=== PATIENT | male | born 2005 | race Caucasian/White ===

== ENCOUNTER 2025-03-30 11:56 | Emergency (ER) | payer SELFPAY ==
[2025-03-30 12:06] VITALS: PULSE 86; O2SAT 99
[2025-03-30 12:07] VITALS: BP 127/80; PULSE 110; RESP 16; TEMP 36.5; O2SAT 98; BMI 17.1
--- NOTE | 2025-03-30 12:07 | ECG_ITS ---
APPROVED REPORT Exam: Resting ECG HR:89 bpm ECG Measurements Heart Rate 89 AXES QRSd 81 QRS 95 QT 338 T 78 QTc 384 Conclusion ATRIAL FLUTTER/TACHYCARDIA BORDERLINE RIGHT AXIS DEVIATION [QRS AXIS > 90] POSSIBLE RIGHT VENTRICULAR CONDUCTION DELAY [RSR (QR) IN V1/V2] MODERATE ST DEPRESSION [0.05+ mV ST DEPRESSION] ABNORMAL ECG UNCONFIRMED REPORT Normal sinus rhythm. No ST elevation or depression. Electronically signed by : RAHUL FITZGERALD, 03/31/2025 07:08:59
[2025-03-30 12:15] VITALS: PULSE 78; RESP 17; O2SAT 99
--- NOTE | 2025-03-30 12:18 | XR_ITS ---
FINAL REPORT CLINICAL HISTORY: Shortness of breath COMPARISON: None FINDINGS: CHEST 1 VIEW No acute pulmonary opacity is present. There is no evidence of effusion or pneumothorax. Mediastinum is unremarkable. Heart size is normal. IMPRESSION: No acute abnormality. Reviewed, Interpreted and Dictated by Galindo Medina MD Transcribed by Kerry Harris Authenticated and [facility]
--- NOTE | 2025-03-30 12:23 | ED_ITS ---
Discharge Plan Disposition Patient Disposition: Home, Self-Care Referrals Follow up/Referrals: Provider,Referral, MD [Primary Care Provider, Medical] - See instructions Activity Restrictions/Add. Instructions Additional Instructions/Restrictions: Increase fluids and rest. Follow-up with your PCP and specialist as needed. If any other problems or concerns please return to ED Clinical Impressions Clinical Impression: Dizziness Stand Alone Forms Stand Alone Forms: Work/School Release Instructions Patient Instructions: Dizziness, Nonvertigo Print Language Print Language: Italian Discharge ED Provider: Felipe Alvarez General Adult HPI <Deirdre [place] (ED), PROTOTYPE TECHNICIAN - Last Filed: 03/30/25 13:33> General Chief complaint: Dizziness Stated complaint: Fever, body, chills, faint Time Seen by Provider: 03/30/25 12:05 Mode of Arrival: Ambulatory Source of Information: Patient Description of Symptoms (Recalled from ER Triage Doc. by RN): Pt presents for evaluation of feeling faint, feverish and body chills. Pt states he took tylenol at 0800 today. History of Present Illness HPI narrative: 19-year-old male presents to the ED today for complaint of feeling lightheaded, vision loss and hearing then he started to feel like he had a fever and body chills yesterday with aches. Patient tells me that he has cystic fibrosis as well. He says when he has these lightheaded episodes he says they last for a full day sometimes he will throw up. He says they happen whether he is in a hot environment or cool environment. He says he has had a cardiac workup 3 to 4 years ago. He was told he did not have a heart murmur or anything wrong with his heart. He says that he thinks he may have had a neurology workup but that may have been when he was a young child. He is concerned about these episodes as he is unable to keep it off very long because he ends up having these episodes and is unable to work. He does tell me that he feels like he is just getting sick currently. Related Data Allergies Allergy/AdvReac Type Severity Reaction Status Date / Time iodine Allergy Rash Verified 03/30/25 12:26 PFSH <Deirdre [place] (ED), PROTOTYPE TECHNICIAN - Last Filed: 03/30/25 13:33> PFS Disclaimer: The information contained in this section may have been updated after the patient was seen, as this information can be updated by other users. Social History (Updated 03/30/25 @ 13:33 by Deirdre [place] (ED), PROTOTYPE TECHNICIAN) Smoking Status: Never smoker alcohol intake: former current occupational status: other Travel in the last 8 weeks?: None Have you lived/traveled outside US in past 30 days?: No Contact w/someone who lives/traveled outside US past 30 days?: No Exposure to someone with infectious disease in past 14 days?: No Do you have a fever (greater than 100.4 F or 38 C)?: No Have you tested positive for COVID-19?: No Exposed to someone with COVID-19 in past 14 days?: No Do you have a sore throat?: No Do you have a cough?: No Do you have any weakness?: No Do you have any diarrhea?: No Are you experiencing any unusual bleeding?: No Do you have any muscle aches/pain?: No Do you have any abdominal pain?: No Are you experiencing loss of taste or smell?: No <Deirdre [place] (ED), PROTOTYPE TECHNICIAN - Last Filed: 03/30/25 13:33> ROS Obtained: Yes Systems reviewed as appropriate & no additional complaints except as documented Constitutional Constitutional: Reports as per HPI Physical Exam <Deirdre [place] (ED), PROTOTYPE TECHNICIAN - Last Filed: 03/30/25 13:33> General General appearance: alert and in no apparent distress Head Head exam: atraumatic and normocephalic Eye Eye exam: Present normal appearance, PERRL and EOMI ENT ENT exam: Present normal oropharynx and mucous membranes moist Neck Neck exam: Present normal inspection, full ROM and trachea midline Respiratory Respiratory exam: Present normal lung sounds bilaterally Cardiovascular Cardiovascular exam: Present normal rhythm, tachycardia, normal heart sounds, +S1 and +S2 Abdominal Exam Abdominal exam: Present soft and normal bowel sounds Extremities Exam Extremities exam: Present normal inspection, full ROM and normal capillary refill Neurological Exam Neurological exam: Present alert, oriented X3 and normal gait Skin Skin exam: Present warm, dry and intact Medical Decision Making <Deirdre [place] (ED), PROTOTYPE TECHNICIAN - Last Filed: 03/30/25 13:33> Medical Records Screening: Per USPSTF and CDC recommendations, given the prevalence of disease in our region, it is our hospital?s policy to screen for HIV and viral Hepatitis for all patients aged 18 and over and those with ongoing risk factors. Esequiel Inquiry Pt receiving controlled substance: No Esequiel was queried for this patient: No Vital Signs: 03/30/25 12:06 03/30/25 12:07 03/30/25 12:15 Temperature 97.7 F Temperature Source Oral Pulse Rate 86 78 Pulse Rate [Right] 110 H Respiratory Rate 16 17 Blood Pressure Blood Pressure [Right Arm] 127/80 Blood Pressure Mean [Right Arm] 95 Blood Pressure Source [Right Arm] Automatic Cuff Blood Pressure Position [Right Arm] Sitting 02 Sat by Pulse Oximetry 99 98 99 Oxygen Delivery Method Room Air Room Air Room Air 03/30/25 12:30 03/30/25 13:00 03/30/25 13:19 Temperature 97.7 F Temperature Source Pulse Rate 69 66 69 Pulse Rate [Right] Respiratory Rate 14 Blood Pressure 113/72 109/65 L 109/65 L Blood Pressure [Right Arm] Blood Pressure Mean [Right Arm] Blood Pressure Source [Right Arm] Blood Pressure Position [Right Arm] 02 Sat by Pulse Oximetry 98 99 Oxygen Delivery Method Room Air Lab Data Lab Results 03/30/25 12:22: WBC 4.8, RBC 4.90, Hgb 15.7, Hct 44.3, MCV 90.4, MCH 32.0 H, MCHC 35.4, RDW 11.4 L, Plt Count 210, MPV 9.4, Neut % (Auto) 65.9, Lymph % (Auto) 23.0, [place] % (Auto) 8.6, Eos % (Auto) 1.5, Baso % (Auto) 0.8, Neut # (Auto) 3.2, Lymph # (Auto) 1.1, [place] # (Auto) 0.4, Eos # (Auto) 0.1, Baso # (Auto) 0.0, D-Dimer 0.32, Sodium 140, Potassium 4.0, Chloride 102, Carbon Dioxide 25, Anion Gap 17.0 H, BUN 8 L, Creatinine 0.80, Estimated Creat Clear 122, Estimated GFR 122, Est GFR ( Amer) 148, Glucose 101 H, Calcium 9.7, Magnesium 1.9, Total Bilirubin 1.2, AST 35, ALT 34, Alkaline Phosphatase 86, Troponin I < 0.01, Total Protein 7.7, Albumin 4.9, Globulin 2.8, Albumin/Globulin Ratio 1.8, Lipase 61 03/30/25 12:22 03/30/25 12:22 Orders (Tests/Meds): ED MEDICATIONS Discontinued Medications Generic Name Dose Route Start Last Admin Trade Name Bebo PRN Reason Stop Dose Admin Acetaminophen 1,000 mg 03/30/25 12:19 03/30/25 12:27 Acetaminophen 1,000mg/100ml Vial IV 03/30/25 12:20 1,000 mg ONCE ONE Administration Sodium Chloride 1,000 mls @ 999 mls/hr 03/30/25 12:18 03/30/25 12:27 Sod Chlor 0.9% 1000ml Bag IV 03/30/25 13:18 999 mls/hr .Q1H1M ONE Administration ORDERS Category Date Time Status Chest XR -- portable [XR chest portable] Stat Exams 03/30/25 12:18 Completed CBC [Complete Blood Count Auto Diff] Stat Lab 03/30/25 12:22 Completed Comprehensive Metabolic Panel Stat Lab 03/30/25 12:22 Completed D-Dimer Stat Lab 03/30/25 12:22 Completed Lipase Stat Lab 03/30/25 12:22 Completed Magnesium Stat Lab 03/30/25 12:22 Completed Trop I [Troponin I] Stat Lab 03/30/25 12:22 Completed Medical Decision Narrative: This is a 19-year-old male presenting to the ED with complaint of feeling lightheaded with some vision and hearing changes during the episode. He started with feeling like he had a fever yesterday with body chills and aches. Patient arrives to the ED afebrile with stable blood pressure slightly elevated heart rate of 110 but appears well. Workup discussed with Dr. Alvarez and consist of EKG, baseline labs and troponin as he is tachycardic and a D-dimer. Patient does have history of cystic fibrosis but takes no medications. He has not had a cardiac workup within the last 3 years stated by patient. Patient's lab work is all essentially unremarkable. Imaging negative for any acute process read by myself. The radiology read also shows nothing acute. Patient received IV Tylenol for symptoms and IV fluids for rehydration. Patient and I discussed lab results and imaging. Patient is safe for discharge home. Patient will need a note for work. <Felipe Alvarez MD - Last Filed: 03/30/25 13:45> Vital Signs: 03/30/25 12:06 03/30/25 12:07 03/30/25 12:15 Temperature 97.7 F Temperature Source Oral Pulse Rate 86 78 Pulse Rate [Right] 110 H Respiratory Rate 16 17 Blood Pressure Blood Pressure [Right Arm] 127/80 Blood Pressure Mean [Right Arm] 95 Blood Pressure Source [Right Arm] Automatic Cuff Blood Pressure Position [Right Arm] Sitting 02 Sat by Pulse Oximetry 99 98 99 Oxygen Delivery Method Room Air Room Air Room Air 03/30/25 12:30 03/30/25 13:00 03/30/25 13:19 Temperature 97.7 F Temperature Source Pulse Rate 69 66 69 Pulse Rate [Right] Respiratory Rate 14 Blood Pressure 113/72 109/65 L 109/65 L Blood Pressure [Right Arm] Blood Pressure Mean [Right Arm] Blood Pressure Source [Right Arm] Blood Pressure Position [Right Arm] 02 Sat by Pulse Oximetry 98 99 Oxygen Delivery Method Room Air Lab Data Lab Results 03/30/25 12:22: WBC 4.8, RBC 4.90, Hgb 15.7, Hct 44.3, MCV 90.4, MCH 32.0 H, MCHC 35.4, RDW 11.4 L, Plt Count 210, MPV 9.4, Neut % (Auto) 65.9, Lymph % (Auto) 23.0, [place] % (Auto) 8.6, Eos % (Auto) 1.5, Baso % (Auto) 0.8, Neut # (Auto) 3.2, Lymph # (Auto) 1.1, [place] # (Auto) 0.4, Eos # (Auto) 0.1, Baso # (Auto) 0.0, D-Dimer 0.32, Sodium 140, Potassium 4.0, Chloride 102, Carbon Dioxide 25, Anion Gap 17.0 H, BUN 8 L, Creatinine 0.80, Estimated Creat Clear 122, Estimated GFR 122, Est GFR ( Amer) 148, Glucose 101 H, Calcium 9.7, Magnesium 1.9, Total Bilirubin 1.2, AST 35, ALT 34, Alkaline Phosphatase 86, Troponin I < 0.01, Total Protein 7.7, Albumin 4.9, Globulin 2.8, Albumin/Globulin Ratio 1.8, Lipase 61 Orders (Tests/Meds): ED MEDICATIONS Discontinued Medications Generic Name Dose Route Start Last Admin Trade Name Bebo PRN Reason Stop Dose Admin Acetaminophen 1,000 mg 03/30/25 12:19 03/30/25 12:27 Acetaminophen 1,000mg/100ml Vial IV 03/30/25 12:20 1,000 mg ONCE ONE Administration Sodium Chloride 1,000 mls @ 999 mls/hr 03/30/25 12:18 03/30/25 12:27 Sod Chlor 0.9% 1000ml Bag IV 03/30/25 13:18 999 mls/hr .Q1H1M ONE Administration ORDERS Category Date Time Status Chest XR -- portable [XR chest portable] Stat Exams 03/30/25 12:18 Completed CBC [Complete Blood Count Auto Diff] Stat Lab 03/30/25 12:22 Completed Comprehensive Metabolic Panel Stat Lab 03/30/25 12:22 Completed D-Dimer Stat Lab 03/30/25 12:22 Completed Lipase Stat Lab 03/30/25 12:22 Completed Magnesium Stat Lab 03/30/25 12:22 Completed Trop I [Troponin I] Stat Lab 03/30/25 12:22 Completed Medical Decision Narrative: This is a 19-year-old male presenting to the ED with complaint of feeling lightheaded with some vision and hearing changes during the episode. He started with feeling like he had a fever yesterday with body chills and aches. Patient arrives to the ED afebrile with stable blood pressure slightly elevated heart rate of 110 but appears well. Workup discussed with Dr. Alvarez and consist of EKG, baseline labs and troponin as he is tachycardic and a D-dimer. Patient does have history of cystic fibrosis but takes no medications. He has not had a cardiac workup within the last 3 years stated by patient. Patient's lab work is all essentially unremarkable. Imaging negative for any acute process read by myself. The radiology read also shows nothing acute. Patient received IV Tylenol for symptoms and IV fluids for rehydration. Patient and I discussed lab results and imaging. Patient is safe for discharge home. Patient will need a note for work. I was consulted by the DIAMOND, and we discussed the complexity of the problems being addressed. I approve the treatment and management plan for this patient's care in the emergency department, thus performing a substantive portion of the medical decision making. Felipe Alvarez MD Critical Care <Deirdre Calvin (ED), PROTOTYPE TECHNICIAN - Last Filed: 03/30/25 13:33> Critical Care Time Critical Care Time: No
[2025-03-30] MEDS: ACETAMINOPHEN 1,000MG/100ML VIAL 1000 MG IV (12:27)
[2025-03-30] MEDS: 0.9 % SODIUM CHLORIDE 1000ML 1,000 ML 999 ML IV (12:27)
[2025-03-30 12:29] LABS: Hematocrit 44.3 % (42.0-52.0); Hemoglobin 15.7 g/dL (14.1-18.0); Immature Granulocytes % 0.2 %; Mean Corpuscular HGB Conc 35.4 g/dL (31.8-35.4); Mean Corpuscular Hemoglobin 32.0 pg (27.0-31.2); Mean Corpuscular Volume 90.4 fl (80-94); Nucleated Red Blood Cells % 0 %; Platelet Count 210 K/mm3 (142-424); Red Blood Count 4.90 M/mm3 (4.60-6.20); Red Cell Distribution Width-SD 38.1 fL; White Blood Count 4.8 K/mm3 (4.8-10.8)
[2025-03-30 12:30] VITALS: BP 113/72; PULSE 69; O2SAT 98
[2025-03-30 12:39] LABS: Alanine Aminotransferase 34 U/L (12-78); Albumin Level 4.9 g/dl (3.5-5.0); Albumin/Globulin Ratio 1.8 (1.1-1.8); Alkaline Phosphatase 86 U/L (38-126); Anion Gap 17.0 mEq/L (5-15); Aspartate Amino Transferase 35 U/L (17-59); Bilirubin,Total 1.2 mg/dl (0.2-1.3); Blood Urea Nitrogen 8 mg/dl (9-20); Calcium 9.7 mg/dl (8.4-10.2); Carbon Dioxide 25 mmol/L (22.0-30.0); Chloride 102 mmol/L (98-107); Creatinine Clearance Estimated 122 mL/min (50-200); Creatinine,Serum 0.80 mg/dl (0.66-1.25); Estimated Glomerular Filt Rate 122 ml/min (>60); GFR (African American) 148 ML/MIN (>60); Globulin 2.8 g/dL (1.3-3.2); Glucose 101 mg/dl (74-100); Lipase 61 U/L (23-300); Magnesium 1.9 mg/dl (1.6-2.3); Potassium 4.0 mmoL/L (3.5-5.1); Sodium 140 mmol/L (136-145); Total Protein,Serum 7.7 g/dl (6.3-8.2)
[2025-03-30 12:45] LABS: D-Dimer 0.32 ug/mL (0.0-0.5)
--- OUTSIDE RECORDS SUMMARY | 2025-03-30 12:47 | XMS_ITS | Encounter Summary ---
Author Organization Healthcare Address [address] [place] [address] Care Team Providers Care Attorney General Name Role Phone Valery Wells MD Primary Care Provider [phone] Encounter Details Date Type Department Care Team (Late st Contact Info) Description 05/14/2023 Outside Procedure External Location [address] [place] [address] Wenceslao Duke MD [address] [place] [address] Social History Tobacco Use Types Packs/Day Years Used Date Smoking Tobacco: Never Passive Smoke Exposure: Never Smokeless Tobacco: Never PHQ-2 Answer Date Recorded Patient Health Questionnaire-2 Score 0 04/20/2023 Sex and Gender Information Value Date Recorded Sex Assigned at Not on file Legal Sex Male 6:05 PM EDT Gender Identity Not on file Sexual Orientation Not on file documented as of this encounter Plan of Treatment Not on file documented as of this encounter Procedures Procedure Name Priority Date/Time Associated Diagnosis Comments ECHO, ADULT TRANSTHORACIC COMPLETE W/ COLOR AND DOPPLER 05/14/2023 3:12 PM EDT documented in this encounter Results * Echo, Adult Transthoracic Complete w/ Color and Doppler (05/14/2023 3:12 PM EDT) Anatomical Region Laterality Modality Ultrasound 05/14/2023 3:12 PM EDT Narrative 05/22/2023 3:58 PM EDT [facility] [address] [place] [address] Name: TRINIDAD MEANS Exam Date: 05/14/2023 : 2005 Age 17 Gender: M Physician: WENCESLAO DUKE Facility: [facility] Facility HSV: Outpatient Exam: ECHO W SPEC COLOR FLOW Reason for Study: syncope, abn ecg SUMMARY Normal LV size with normal function. The ejection fraction is 70-75%. Normal diastolic function. Normal LV filling. INTERPRETATION DETAIL Good quality study. Left ventricle: The left ventricle is normal in size with normal systolic function. The ejection fraction is 70-75%. The left ventricular wall motion is normal. The left ventricular filling pattern is normal. Mitral filling indicates Normal diastolic function. Left atrium: The left atrium is normal. Right ventricle: The right ventricle is normal in size with normal function. RV moderator band noted, normal variant. Right atrium: The right atrium is normal. Mitral valve: The mitral valve is normal. There is no mitral stenosis. There is trace mitral regurgitation. Aortic valve: The aortic valve is not well seen. There is with a valve area of 2.70 science instructor (Peak grad=5mmHg, Mean grad=3mmHg, LVOT lynsey=2.00cm, LVOT TVI=20.3cm, Ao TVI=23.6cm). The dimensionless index is 0.86. AV peak qrqmhgap=252vh/sec. Tricuspid valve: The tricuspid valve is normal. There is trace tricuspid regurgitation. Pulmonic valve: The pulmonic valve is normal. There is physiologic pulmonic regurgitation. Pericardium: The pericardium is normal. Interatrial septum: The interatrial septum is normal. Aorta: The aorta is normal. The aortic root is normal. Aortic dimensions - Ao M-mode= 2.70cm, Ascending=2.10cm. Vena Cava: The inferior vena cava is normal. MEASUREMENTS Left Ventricle E to A: 2.04 (0.6-2) E-e prime med: 7.29 E-e prime lat: 5.37 Decel: 185.00ms (168-232ms) Max Valve Velocities AV peak beltran: 109cm/sec LVOT: 107.00cm/sec Atria LA AP: 2.7cm LA vol: 37.3mL Wenceslao Duke MD Dictated By: WENCESLAO DUKE Legally authenticated by TU Andrews 2023-05-22 08:54:42 Transcribed By: Transcribed On: 05/22/2023 8:54 AM Electronically signed by: WENCESLAO DUKE 05/22/2023 Thank you for referring TRINIDAD MEANS to [facility]. Legally authenticated by TU Andrews 2023-05-22 08:54:42 Procedure Note Provider, Generic [place] - 05/22/2023 [place] [address] Name: TRINIDAD MEANS Exam Date: 05/14/2023 : 2005 Age 17 Gender: M Physician: WENCESLAO DUKE Facility: [facility] Facility HSV: Outpatient Exam: ECHO W SPEC COLOR FLOW Reason for Study: syncope, abn ecg SUMMARY Normal LV size with normal function. The ejection fraction is 70-75%. Normal diastolic function. Normal LV filling. INTERPRETATION DETAIL Good quality study. Left ventricle: The left ventricle is normal in size with normal systolic function. The ejection fraction is 70-75%. The left ventricular wall motion is normal. The left ventricular filling pattern is normal. Mitral filling indicates Normal diastolic function. Left atrium: The left atrium is normal. Right ventricle: The right ventricle is normal in size with normal function. RV moderator band noted, normal variant. Right atrium: The right atrium is normal. Mitral valve: The mitral valve is normal. There is no mitral stenosis. There is trace mitral regurgitation. Aortic valve: The aortic valve is not well seen. There is with a valve area of 2.70 science instructor (Peak grad=5mmHg, Mean grad=3mmHg, LVOT lynsey=2.00cm, LVOT TVI=20.3cm, Ao TVI=23.6cm). The dimensionless index is 0.86. AV peak xiormxxl=715pp/sec. Tricuspid valve: The tricuspid valve is normal. There is trace tricuspid regurgitation. Pulmonic valve: The pulmonic valve is normal. There is physiologic pulmonic regurgitation. Pericardium: The pericardium is normal. Interatrial septum: The interatrial septum is normal. Aorta: The aorta is normal. The aortic root is normal. Aortic dimensions - Ao M-mode= 2.70cm, Ascending=2.10cm. Vena Cava: The inferior vena cava is normal. MEASUREMENTS Left Ventricle E to A: 2.04 (0.6-2) E-e prime med: 7.29 E-e prime lat: 5.37 Decel: 185.00ms (168-232ms) Max Valve Velocities AV peak beltran: 109cm/sec LVOT: 107.00cm/sec Atria LA AP: 2.7cm LA vol: 37.3mL Wenceslao Duke MD Dictated By: WENCESLAO DUKE Legally authenticated by TU Andrews 2023-05-22 08:54:42 Transcribed By: Transcribed On: 05/22/2023 8:54 AM Electronically signed by: WENCESLAO DUKE 05/22/2023 Thank you for referring TRINIDAD MEANS to [facility]. Legally authenticated by TU Andrews 2023-05-22 08:54:42 Wenceslao Duke MD CV ECHO PROCEDURES Final Resu lt documented in this encounter Visit Diagnoses Not on filedocumented in this encounter Additional Health Concerns Infection Onset Date Last Indicated Resolved Time MRSA Comment:Respiratory Culture---CF Collection Date: 28-Sep-2018 10:41:00 Expanded Results: MIXED UPPER RESPIRATORY SARAHI STAPHYLOCOCCUS AUREUS (MRSA) NOTE: Patient needs MRSA Protocol 09/28/2018 07/02/2021 Cystic Fibrosis 12/04/2021 12/04/2021 Assessment Noted Time PHQ-9 Depression Total Score: 15 08/04/ 022 11:41 AM EST A fall risk assessment has been complete d for the patient 02/24/2023 1:19 PM EDT documented as of this encounter Care Teams Attorney General Relationship Specialty Start Date End Date Valery Wells MD [address] [place] [address] PCP - General 01/25/21 documented as of this encounter
--- OUTSIDE RECORDS SUMMARY | 2025-03-30 12:47 | XMS_ITS | Clinical Summary ---
Author Organization Healthcare Address [address] [place] [address] Care Team Providers Care Manager Division Name Role Phone Valery Wells MD Primary Care Provider [phone] Allergies Active Allergy Reactions Criticality Noted Date Comments Povidone Iodine Unknown - Patient st ates they do not know rxn details,Dermatitis Low 02/23/2019 Medications Multiple Vitamins-Minera ls (One A Day Mens VitaCraves) chewable tablet Chew 2 Chewable tablet 1 (one) time each day. Active Active Problems Problem Noted Date Diagnosed Date Snoring 03/12/2023 Major depressive disorder, s selina episode, moderate with anxious distress 01/27/2023 Chronic fatigue 01/27/2023 Orthostatic hypotension 12/18/2022 Benign neoplasm of skin 12/04/2021 Congenital pigmented melanocytic nevus Cystic fibrosis 12/04/2021 Cystic fibrosis carrier 12/04/2021 Eczema 12/04/2021 Overview (12/04/2021): Refill triamcinolone 0.1% bid until clear. Continue lubricating lotion. 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 Immunizations Immunization Administration Dates Next Due DTP-Hib-Hep B 06/05/2004 DTaP 08/30/2004, 4,2003,11/29,2003,2003,2003 ,2003 DTaP, 5 pertussis antigens 08/30/2004,,2003,08/01 HPV 9-Valent 05/03/2021, 1,03/21/2021,03/21 Hep A, Adult 07/08/2011,06/07/2007 Hep A, Unspecified 07/08/2011,06/07/2007 Hep A, ped/adol, 2 dose 08/14/2014,06/07/2007 Hep B, Adolescent or Pediatric 08/14/2014,2002,2003 Hep B, adult 10/16/2011, 2,2003,08/01,2003,2003 HiB, unspecified 2003,2003 Hib (PRP-OMP) 2003, 4,2003,08/01 Hib / Hep B 06/05/2004,06/05/2004 IPV 10/31/2008, 9,10/31/2008,11/29,2003,2003,2003 ,2003,2003,2003,07/15,2003 Influenza Whole 07/04/2013 Influenza, Split (incl. gene fied surface antigen) 08/24/2012 Influenza, injectable, quadr ivalent, preservative free 07/02/2021,06/19/2020,06/19/2020,07/05,07/05/2019,06/22/2018,06/22/2018 ,06/10/2017,06/10/2017,05/20/2016,090 02/2016,06/28/2015 Influenza, seasonal, injectable 05/02/20 14,05/02/2014,04/22/2014,04/22,03/15/2012,03/15/2012,04/24/2009 ,04/24/2009 Influenza, seasonal, injecta ble, preservative free 06/20/2014 MMR 09/20/2014, 2,01/02/2012,06/05,06/05/2004,06/05/2004 Meningococcal MCV4O 03/21/2021 Meningococcal MCV4P 09/20/2014,06/27/2011,2010 Tropical [place] COVID-19 Vac cine (Purple Cap) 12+ 06/27/2021,05/29/2021 Pneumococcal 20-deandre Conj Vaccine 07/29/2023 Pneumococcal Conjugate PCV 7 07/31/2004,11/30/19 04,2003 Pneumococcal Polysaccharide PPV23 2003,07/31/2004,2003,11/29,2003,2003 Tdap 09/20/2014,01/30/2013,01/30/2013 Varicella 06/07/2007, 7,06/07/2007,06/05,06/05/2004,06/05/2004 Family History Medical History Relation Name Comments Conversions - Other Maternal Grandfather deep venous thrombosis Crohn's disease Other 1 Inflammatory bowel disease Other 2 Pancreatic cancer Other 3 Prostate cancer Paternal Grandfather Celiac disease Paternal Grandmother Relation Name Status Comments Maternal Grandfather Other 1 Other 2 Other 3 Paternal Grandfather Paternal Grandmother Social History Tobacco Use Types Packs/Day Years Used Date Smoking Tobacco: Never Passive Smoke Exposure: Never Smokeless Tobacco: Never Tobacco Cessation:Counseling Given: Yes Humiliation, Afraid, Rape, and Kick questionnair e Answer Date Recorded Within the last year, have y ou been afraid of your partner or ex-partner? No 05/02/2024 Within the last year, have y ou been humiliated or emotionally abused in other ways by your partner or ex-partner? No Within the last year, have y ou been kicked, hit, slapped, or otherwise physically hurt by your partner or ex-partner? No 05/02/2024 Within the last year, have y ou been raped or forced to have any kind of sexual activity by your partner or ex-partner? No 05/02/2024 PHQ-2 Answer Date Recorded Patient Health Questionnaire-2 Score 0 05/02/2024 Hunger Vital Sign Answer Date Recorded Within the past 12 months, y ou worried that your food would run out before you got the money to buy more. Never true 05/02/20 24 Within the past 12 months, t he food you bought just didn't last and you didn't have money to get more. Never true 05/02/2024 PRAPARE - Transportation Answer Date Re corded In the past 12 months, has l ack of transportation kept you from medical appointments or from getting medications? No 04/14 In the past 12 months, has l ack of transportation kept you from meetings, work, or from getting things needed for daily living? No 05/02/2024 Housing Stability Vital Sign Answer Alexander e Recorded In the last 12 months, was t here a time when you were not able to pay the mortgage or rent on time? No 05/02/2024 [address] of Places Lived in the Last Year Not on f ile 05/02/2024 In the last 12 months, was t here a time when you did not have a steady place to sleep or slept in a alf (including now)? No 05/02/2024 Safety and Environment Answer Date Gunnar rded Do you worry that your child may have been physically abused? No 05/02/2024 Do you worry that your child may have been sexua lly abused? No 05/02/2024 Are there any guns kept in o r around your home or where your child spends time? No 05/02/2024 Guns Unloaded or Locked Away Not on file Utilities Answer Date Recorded In the past 12 months has th e electric, gas, oil, or water company threatened to shut off services in your home? No 05/02/2024 PHQ-2A Answer Date Recorded Patient Health Questionnaire-2 Score 0 07/29/2023 Sex and Gender Information Value Date Recorded Sex Assigned at Not on file Legal Sex Male 6:05 PM EDT Gender Identity Not on file Sexual Orientation Not on file Last Filed Vital Signs Vital Sign Reading Time Taken Comments Blood Pressure 110/70 05/02/2024 2:16 PM EDT Pulse 94 05/02/2024 2:16 PM EDT Temperature 36.7 C (98 F) 06/03/2023 7:57 AM EDT Respiratory Rate 18 07/29/2023 7:32 AM EST Oxygen Saturation 98% 05/02/2024 2:16 PM EDT Inhaled Oxygen Concentration - - Weight 63.7 kg (140 lb 6.9 oz) 05/02/2024 2:16 P M EDT Height 185.4 cm (6' 1 ) 05/02/2024 2:16 PM EDT Body Mass Index 18.53 05/02/2024 2:16 PM EDT Plan of Treatment Health Maintenance Due Date Last Done Comments HPV Vaccines (3 - Male 3-dose series) 09/21/2021 05/03/2021, 05/03/2021, 03/21/2021, Additional history exists [id number] Vaccine (3 - season) 2024 06/27/2021, 05/29/2021 [facility]-DTaP,Tdap,and Td Vaccines (7 - Td or Tdap) 09/20/2024 09/20/2014, 01/30/2013, 01/30/2013, Additional history exists [facility]- SDOH Screenings 11/02/2024 [facility]-Adult SDOH Screenings 11/02/2024 05/02/2024 [facility]-Infant/Child/Adol SDOH Screenings 11/02/2024 05/02/2024 [facility]-Depression Screening 05/02/2025 05/02/2024, /09/2021 [facility]-Influenza Vaccine (#1) 05/15/202508/12, 07/02/2021, 06/19/2020, Additional history exists [facility]-Zoster Vaccines (1 of 2) 2053 06/07/2007, 06/07/2007, 06/07/2007, Additional history exists [facility]-HIB Vaccines Completed 06/05/2004, , 06/05/2004, Additional history exists [facility]-Varicella Vaccines Completed 7, 06/07/2007, 06/07/2007, Additional history exists [facility]-IPV Vaccines Completed 10/31/2008, , 10/31/2008, Additional history exists [facility]-Hepatitis A Vaccines Completed 014, 07/08/2011, 07/08/2011, Additional history exists [facility]-Hepatitis B Vaccines Completed 014, 10/16/2011, 10/16/2011, Additional history exists [facility]-Pneumococcal Vaccine: Pediatrics (0 to 5 Years) and At-Risk Patients (6 to 49 Years) Completed 07/29/2023, 07/31/2004, 07/31/2004, Additional history exists [facility]-HIV Screening Completed 05/02/2024 [facility]-Hepatitis C Screening Completed 05/02/2024 [facility]-Rotavirus Vaccines Aged Out No lo nger eligible based on patient's age to complete this topic Procedures Procedure Name Priority Date/Time Associated Diagnosis Comments HEPATITIS C ANTIBODY W/REFLEX TO HCV QUANT PCR Routine 05/02/2024 2:38 PM EDT Need for hepatitis C screening test HIV 1/2 ANTIBODY/ANTIGEN SCREEN WITH REFLEX TO HIV I/II DIFFERENTIATION Routine 05/02/2024 2:38 PM EDT Screening for human immunodeficiency virus from Last 3 Months or Most Recently Relevant to Health Maintenance Results * HIV 1 & 2 Antibody/Antigen Screen (05/02/2024 2:38 PM EDT) HIV 1 & 2 Antibody/Antigen Screen Non Reactive Non Reactive 05/02/2024 10:10 PM EDT [facility] Comment:Screening for HIV 1 & 2 antibodies, and P24 antigen is NONREACTIVE. No confirmatory testing is required. Blood Venous blood specimen / Unknown Venipuncture / Unknown 05/02/2024 2:38 PM EDT 05/02/2024 2:38 PM EDT us Liana [facility] BLOOD ORDERABLES Final Result [facility] [address] [place] [address] * Hepatitis C Antibody w/Reflex to HCV Quant PCR (05/02/2024 2:38 PM EDT) Hepatitis C Antibody Negative Negative 05/02/2024 10:10 PM EDT [facility] Blood Venous blood specimen / Unknown Venipuncture / Unknown 05/02/2024 2:38 PM EDT 05/02/2024 2:38 PM EDT us Liana Newby SR [facility] BLOOD ORDERABLES Final Result [facility] [address] [place] [address] from Last 3 Months or Most Recently Relevant to Health Maintenance Additional Health Concerns Infection Onset Date Last Indicated MRSA Comment:Respiratory Culture---CF Collection Date: 28-Sep-2018 10:41:00 Expanded Results: MIXED UPPER RESPIRATORY SARAHI STAPHYLOCOCCUS AUREUS (MRSA) NOTE: Patient needs MRSA Protocol 09/28/2018 07/02/2021 Cystic Fibrosis 12/04/2021 12/04/2021 [id number] [place] [id number] Care Teams Manager Division Relationship Specialty Start Date End Date Valery Wells MD [address] [place] [place] [address] PCP - General 01/25/21
--- OUTSIDE RECORDS SUMMARY | 2025-03-30 12:47 | XMS_ITS | Encounter Summary ---
Author Organization Healthcare Address [address] [id number] Care Team Providers Care [employer] Name Role Phone Valery Wells MD Primary Care Provider [phone] Reason for Visit * Reason Comments Med Refill Encounter Details Date Type Department Care Team (Late st Contact Info) Description 01/29/2024 Refill [facility] [address] [place] [address] Valery Wells MD [address] [place] [address] Major depressive disorder, single episode, moderate with anxious distress (CMS/HCC) Social History Tobacco Use Types Packs/Day Years Used Date Smoking Tobacco: Never Passive Smoke Exposure: Never Smokeless Tobacco: Never PHQ-2 Answer Date Recorded Patient Health Questionnaire-2 Score 0 07/29/2023 PHQ-2A Answer Date Recorded Patient Health Questionnaire-2 Score 0 07/29/2023 Sex and Gender Information Value Date Recorded Sex Assigned at Not on file Legal Sex Male 6:05 PM EDT Gender Identity Not on file Sexual Orientation Not on file documented as of this encounter Plan of Treatment Not on file documented as of this encounter Visit Diagnoses Diagnosis Major depressive disorder, single episode, moderate with anxious distress (CMS/HCC) documented in this encounter Additional Health Concerns Infection Onset Date Last Indicated Resolved Time MRSA Comment:Respiratory Culture---CF Collection Date: 28-Sep-2018 10:41:00 Expanded Results: MIXED UPPER RESPIRATORY SARAHI STAPHYLOCOCCUS AUREUS (MRSA) NOTE: Patient needs MRSA Protocol 09/28/2018 07/02/2021 Cystic Fibrosis 12/04/2021 12/04/2021 Assessment Noted Time PHQ-9 Depression Total Score: 15 11/21/2 022 11:41 AM EST A fall risk assessment has been complete d for the patient 06/03/2023 7:57 AM EDT A Body Mass Index follow-up plan has been documented for the patient 07/29/2023 9:14 AM EST documented as of this encounter Care Teams [employer] Relationship Specialty Start Date End Date Valeyr Wells MD [address] [place] [address] PCP - General 01/25/21 documented as of this encounter
[2025-03-30 13:00] VITALS: BP 109/65; PULSE 66; O2SAT 99
[2025-03-30 13:04] LABS: Troponin I < 0.01 ng/ml (0.00-0.034)
[2025-03-30 13:19] VITALS: BP 109/65; PULSE 69; RESP 14; TEMP 36.5; O2SAT 100
== END 2025-03-30 13:40 | disposition home or self-care (01) ==
PROVIDERS: Nurse Practitioner; Emergency Provider Student in an Organized Health Care Education/Training Program
DX: R42 Dizziness and giddiness (principal)
CPT/HCPCS: 71045; 80053; 83690; 83735; 84484; 85025; 85378; 93005; 96361; 96374; 99284; J0131; J7030